=== PATIENT | female | born 2000 | race Caucasian/White ===

== ENCOUNTER 2022-12-13 20:23 | Emergency (ER) | payer OTHER, SELFPAY ==
[2022-12-13 20:43] VITALS: BP 129/73; PULSE 93; RESP 18; TEMP 37.1; O2SAT 100; BMI 25.3
--- NOTE | 2022-12-13 20:50 | ED_ITS ---
HPI - Animal Bite General Chief Complaint: Animal Bite Stated Complaint: Attacked by cat left leg Time Seen by Provider: 12/13/22 22:03 Source: patient Mode of arrival: ambulatory Limitations: no limitations History of Present Illness HPI narrative: Patient got scratched and bitten by her friend's cat prior to arrival. Patient got scared of Cat and for no reason Cat came and started scratching and biting her legs. Cat otherwise healthy not sure whether get been immunized completely or not. Patient up-to-date with tetanus Related Data Previous Rx's Medication Instructions Recorded clindamycin HCl 300 mg capsule 300 mg PO TID #30 caps 12/13/22 doxycycline hyclate 100 mg tablet 100 mg PO BID #20 tabs 12/13/22 ibuprofen 600 mg tablet 600 mg PO Q6H PRN fever or pain 12/13/22 #30 tabs Allergies Allergy/AdvReac Type Severity Reaction Status Date / Time Penicillins [PCN] Allergy Mild HIVES Unverified 12/27/19 17:25 Review of Systems Review of Systems: Yes all other systems are reviewed and are negative [facility] Social History Social History Alcohol intake: never Smoked in Last 30 Days: No Use of substances other than those prescribed or required for medical reasons: No Advance Directives: No Advance Directives Information Provided: Yes Physical Exam ED Vital Signs: Vital Signs - 24 hr 12/13/22 20:43 12/13/22 22:44 Temperature 98.7 F 98.9 F Pulse Rate 93 68 Respiratory Rate 18 15 Blood Pressure 129/73 113/75 Pulse Oximetry 100 100 Oxygen Delivery Method Room Air Room Air BMI result Body Mass Index 25.3 Appearance: Alert. Oriented X3. No acute distress. CVS: Normal heart rate and rhythm. Pulses normal. Respiratory: No respiratory distress. Skin: Skin warm and dry. Multiple scratch lozano L lower extremity Extremities: Bite clarissa and scratch lozano left lower extremity slight swelling Neuro: Oriented X 3. Course Course Course Narrative: This is a rapid medical exam: Additional HPI, ROS, PE not included below will be deferred to primary provider. Patient is a 22-year-old female presenting to the emergency department with complaint of left lower leg pain after being bitten and scratched by a friend's cat this morning. Patient reports that she was putting a baby in the car and the cat came up behind her and bit and scratched her on the leg. Friend told her that the cat has had its 1st month of vaccinations but was unable to provide more specific information than that. The bite occurred in [place]. Patient states as the day has progressed, the pain and swelling has worsened to left leg. Multiple scabs and abrasions noted to left calf area. Patient reports tetanus was recently updated. Medications Administered Discontinued Medications Generic Name Dose Route Start Last Admin Trade Name Freq PRN Reason Stop Dose Admin Clindamycin HCl 300 mg 12/13/22 22:38 12/13/22 23:08 Clindamycin Hcl 300 Mg Capsule PO 12/13/22 22:39 300 mg ONCE ONE Administration Doxycycline Monohydrate 100 mg 12/13/22 22:38 12/13/22 23:07 Doxycycline Monohydrate 100 Mg Capsule PO 12/13/22 22:39 100 mg ONCE ONE Administration Ibuprofen 600 mg 12/13/22 22:36 12/13/22 23:07 Ibuprofen 600 Mg Tablet PO 12/13/22 22:37 600 mg ONCE ONE Administration Medical Decision Making Medical Decision Making [facility] Narrative: Patient with cat bite wound was clean patient allergic to penicillin will give doxycycline and clindamycin for to avoid infection patient will be keeping an eye on a CT to report to the hospital in case get dyes abuse differently next 10 days Discharge Plan Discharge Clinical Impression: Cat bite Patient Disposition: Home, Self-Care Instructions: Animal Bite (ED) Additional Instructions: Local care of wounds as advised Antibiotic as prescribed Report to the ER if worsening of the redness or pain Report to the ER if Cat dies within next 10 days for rabies injection Prescriptions: New clindamycin HCl 300 mg capsule 300 mg PO TID Qty: 30 0RF ibuprofen 600 mg tablet 600 mg PO Q6H PRN (Reason: fever or pain) Qty: 30 0RF doxycycline hyclate 100 mg tablet 100 mg PO BID Qty: 20 0RF Interventions: ED Discharge Assessment Last Done: 12/13/22 23:34 Discharge Date/Time: 12/13/22 23:36
[2022-12-13 22:44] VITALS: BP 113/75; PULSE 68; RESP 15; TEMP 37.2; O2SAT 100
[2022-12-13] MEDS: Doxycycline Monohydrate 100 MG CAPSULE PO (23:07)
[2022-12-13] MEDS: Ibuprofen 600 MG TABLET PO (23:07)
[2022-12-13] MEDS: Clindamycin HCL 300 MG CAPSULE PO (23:08)
== END 2022-12-13 23:36 | disposition home or self-care (01) ==
PROVIDERS: Emergency Provider Internal Medicine
DX: S81.852A Open bite, left lower leg, initial encounter (principal); W55.01XA Bitten by cat, initial encounter; Y93.9 Activity, unspecified; Y92.9 Unspecified place or not applicable; Y99.9 Unspecified external cause status
CPT/HCPCS: 99283; 99284

== ENCOUNTER 2023-08-31 01:34 | Emergency (ER) | payer OTHER, SELFPAY ==
[2023-08-31 01:58] VITALS: BP 150/97; PULSE 65; RESP 18; TEMP 37.1; O2SAT 98; BMI 23.9
[2023-08-31 02:23] LABS: MANUAL DIFF FLAG NO
[2023-08-31 02:25] LABS: Basophils Absolute Auto 0.1 X10*3/uL (0.0-0.2); Basophils Percent Auto 0.6 % (0-2); Eosinophils Percent Auto 0.4 % (0-4); Hematocrit 38.4 % (37.0-47.0); Hemoglobin 12.9 g/dl (12.0-16.0); Imm Gran Abs Auto 0.02 X10*3/uL (0.00-0.03); Imm Gran Pct Auto 0.2 % (0.0-0.4); Lymphocytes Absolute Auto 3.6 X10*3/uL (1.2-4.9); Lymphocytes Percent Auto 33.8 % (20-40); Mean Corpuscular HGB Conc 33.6 g/dl (31.0-35.0); Mean Corpuscular Hemoglobin 27.6 pg (27.0-33.0); Mean Corpuscular Volume 82.1 fL (80.0-98.0); Mean Platelet Volume 9.3 fL (9.4-12.3); Monocytes Absolute Auto 0.7 X10*3/uL (0.1-1.2); Monocytes Percent Auto 6.6 % (2-11); Neutrophils Absolute Auto 6.1 x10*3/uL (2.0-8.3); Neutrophils Percent Auto 58.4 % (45-73); Platelet Count 383 X10*3/uL (160-400); Red Blood Count 4.68 X10*6/uL (4.20-5.50); Red Cell Distribution Width 13.4 % (11.0-16.0); White Blood Count 10.5 X10*3/uL (4.8-10.8)
[2023-08-31 02:34] LABS: IDNOW Serial# 08D9AD1C; Strep A Nucleic Acid Negative (Negative)
[2023-08-31 02:48] LABS: Alanine Aminotransferase 42 U/L (0-31); Albumin Level 4.8 g/dL (3.5-5.0); Alkaline Phosphatase 61 U/L (39-117); Anion Gap 19 (12-20); Aspartate Amino Transferase 62 U/L (5-31); Bilirubin Total 0.5 mg/dL (0.0-1.0); Blood Urea Nitrogen 14 mg/dL (9-16); Calcium 9.8 mg/dL (8.4-10.2); Carbon Dioxide 20 mmol/L (22-29); Chloride 108 mmol/L (96-108); Creatinine Clr Calc Pharmacy 65.8; Estimated Glomerular Filt Rate > 60; Glucose Random 86 mg/dL (60-115); Potassium 4.2 mmol/L (3.3-5.1); Sodium 143 mmol/L (135-145); Total Protein 7.7 g/dL (6.5-8.0)
[2023-08-31 04:28] VITALS: BP 140/81; PULSE 54; RESP 16; TEMP 37; O2SAT 99
--- NOTE | 2023-08-31 06:30 | ED_ITS ---
HPI - General Adult General Chief complaint: Dental/Oral Stated complaint: Mouth pain, allergic reaction? Time Seen by Provider: 08/31/23 06:30 Source: patient and family (mother) Mode of arrival: ambulatory Limitations: no limitations History of Present Illness ED Provider: Tavares Contreras NP HPI narrative: Patient is a 22-year-old female presenting to the emergency department with complaint of oral pain since yesterday. Patient reports that she developed a burning sensation to the roof of her mouth, describes feeling a blister. States she drank some water and symptoms did not improve. Then when eating a hamburger, states pain significantly increased. States the hamburger was not overly hot. Denies any difficulty swallowing. Does complain of sore throat. Denies fevers, nasal congestion, cough. Denies any difficulty breathing or shortness of breath. Denies recent antibiotic use. Denies any rashes or lesions anywhere else on her body. complaint: oral pain Onset (ago): hour(s) Location: mouth Radiation: non-radiation Severity: moderate Quality: burning Pain Consistency: constant Relieving factors: none Exacerbating factors: eating Associated symptoms: denies other symptoms Treatments prior to arrival: none Related Data Previous Rx's ?Medication ?Instructions ?Recorded clindamycin HCl 300 mg capsule 300 mg PO TID #30 caps 12/13/22 doxycycline hyclate 100 mg tablet 100 mg PO BID #20 tabs 12/13/22 ibuprofen 600 mg tablet 600 mg PO Q6H PRN fever or pain 12/13/22 #30 tabs lidocaine HCl 2 % mucosal solution 5 ml mucous membrane TID PRN mouth 08/31/23 (Lidocaine Viscous) pain #100 mL Allergies Allergy/AdvReac Type Severity Reaction Status Date / Time Penicillins [PCN] Allergy Mild HIVES Unverified 08/31/23 02:02 Review of Systems 2 Review of Systems: As per HPI. Yes all other systems are reviewed and are negative Constitutional: Constitutional: Reports as per HPI [facility] Social History Social History Alcohol intake: never Advance Directives: No Advance Directives Information Provided: Yes Do you have a plan to hurt others: No Plan Physical Exam ED Vital Signs: Vital Signs - 24 hr 08/31/23 01:58 08/31/23 04:28 08/31/23 06:44 Temperature 98.8 F 98.6 F 98.2 F Pulse Rate 65 54 98 Respiratory Rate 18 16 16 Blood Pressure 150/97 H 140/81 H 143/80 H Pulse Oximetry 98 99 98 Oxygen Delivery Method Room Air Room Air Room Air BMI result Body Mass Index 23.9 Vital signs have been reviewed and appear to be correct. Blood pressure elevated. Heart rate normal. Respiratory rate normal. Temperature normal. Oxygen saturation normal. Const General: cooperative, healthy appearing and no acute distress Orientation/consciousness: oriented to person, oriented to place, oriented to time and patient oriented x3 Limitations: no limitations HENMT Head: Yes normocephalic and Yes atraumatic Ears: external ears normal General nose exam: Normal external nose present Face and sinus: Yes face symmetric Mouth: Normal oral and palatal mucosa present, lip normal, tongue normal, Normal salivary glands and ducts present, oropharynx normal, moist mucous membranes, no audible dysphonia, no drooling, No mouth trauma, no muffled voice, Abnormal oral and palatal mucosa present erythematous (palate/posterior oropharynx); not edematous, no palatal petechiae, no ulcerations, no white patches, no vesicles, lesions, nodules, papules, pustules, ulceration, cyst and leukoplakia, no trismus and No restricted motion Throat: Yes tonsils normal, Yes uvula midline, Yes posterior oropharynx abnormal (erythema without edema or exudate) and No uvular edema Eyes Pupils: Equal, round and reactive pupils present Neck Neck: Yes normal visual inspection and Yes supple Resp Effort & Inspection: normal respiratory effort and able to speak in complete sentences Auscultation: clear to auscultation bilaterally Cardio Rate: regular rate Rhythm: regular rhythm Heart sounds: S1 normal heart sound present and S2 normal heart sound present GI Palpation (GI): Soft to palpation and nontender Auscultation: normoactive bowel sounds General: Yes no CVA tenderness Back/Spine/Pelvis Back: no CVA tenderness Skin General skin exam: elasticity normal and turgor normal Neuro General: oriented to person, oriented to place, oriented to time, patient oriented x3, moves all extremities, no focal motor deficits and CN's II-XI intact bilaterally Cranial nerves: Yes Equal, round and reactive pupils present Cognition (Neuro): normal cognition Extrem General: Yes full ROM, Yes no pedal edema and Yes no calf tenderness Psych Mental Status: mental status grossly normal Affect: normal affect Thought process: Normal thought process present Medical Decision Making Medical Decision Making [facility] Narrative: Patient is a 22-year-old female presenting to the emergency department with complaint of oral pain since yesterday. On exam patient is awake, A+Ox3, VS WNL, afebrile, normal neurological exam without focal deficits, physical exam findings as above. Given reported symptoms and physical exam findings, initial differential includes strep pharyngitis, viral illness. Unlikely allergic reaction. Do not suspect HFMD. Labs unremarkable. Strep swab negative. No concerning findings on physical exam. Possibly burning mouth syndrome of unknown etiology. Advised patient to alternate Tylenol and ibuprofen, gargle with warm salt water, will send prescription for viscous lidocaine to swish and spit. Instructed patient to follow-up with primary care provider. Return precautions discussed at bedside. Patient verbalized understanding of and agreement with plan. Differential Diagnosis Differential Diagnoses: The differential diagnosis associated with the presentation includes As per [facility]. Lab Data [facility] Lab Attestation statement: I reviewed the patient's lab results. As per [facility]. 08/31/23 02:19 08/31/23 02:19 Labs: Lab Results 08/31/23 Range/Units 02:19 WBC 10.5 (4.8-10.8) X10*3/uL RBC 4.68 (4.20-5.50) X10*6/uL Hgb 12.9 (12.0-16.0) g/dl Hct 38.4 (37.0-47.0) % MCV 82.1 (80.0-98.0) fL MCH 27.6 (27.0-33.0) pg MCHC 33.6 (31.0-35.0) g/dl RDW 13.4 (11.0-16.0) % Plt Count 383 (160-400) X10*3/uL MPV 9.3 L (9.4-12.3) fL Immature Gran % (Auto) 0.2 (0.0-0.4) % Neut % (Auto) 58.4 (45-73) % Lymph % (Auto) 33.8 (20-40) % [place] % (Auto) 6.6 (2-11) % Eos % (Auto) 0.4 (0-4) % Baso % (Auto) 0.6 (0-2) % Lymph # (Auto) 3.6 (1.2-4.9) X10*3/uL [place] # (Auto) 0.7 (0.1-1.2) X10*3/uL Eos # (Auto) 0.0 (0.0-0.4) X10*3/uL Baso # (Auto) 0.1 (0.0-0.2) X10*3/uL Abs Immat Gran (auto) 0.02 (0.00-0.03) X10*3/uL Absolute Neuts (auto) 6.1 (2.0-8.3) x10*3/uL Absolute Nucleated RBC 0.000 (0.0-0.012) X10*3/uL Nucleated RBC % (auto) 0.0 (0.0-0.2) /100WBC Sodium 143 (135-145) mmol/L Potassium 4.2 (3.3-5.1) mmol/L Chloride 108 (96-108) mmol/L Carbon Dioxide 20 L (22-29) mmol/L Anion Gap 19 (12-20) BUN 14 (9-16) mg/dL Creatinine 1.10 (0.5-1.4) mg/dL Estim Creat Clear Calc 65.8 Estimated GFR > 60 Random Glucose 86 (60-115) mg/dL Calcium 9.8 (8.4-10.2) mg/dL Total Bilirubin 0.5 (0.0-1.0) mg/dL AST 62 H (5-31) U/L ALT 42 H (0-31) U/L Alkaline Phosphatase 61 (39-117) U/L Total Protein 7.7 (6.5-8.0) g/dL Albumin 4.8 (3.5-5.0) g/dL S. pyogenes GrpA SHABBIR Negative (Negative) Independent Historian Clinical information obtained from an independent historian. History obtained from or confirmed by: Parent External Record Review External record reviewed: Inpatient record, Office record and Outpatient record Prescription Management I considered prescription management with: Pain Medication Discharge Plan Discharge Clinical Impression: Oral pain Patient Disposition: Home, Self-Care Additional Instructions: You were evaluated in the emergency department today for oral pain. The cause of your pain was not determined, but could be due to a viral illness. You are being prescribed lidocaine which you can swish in your mouth and spit out. We also recommend that you take 600mg ibuprofen or 650mg Tylenol every 6 hours as needed for pain. You can also gargle with warm salt water several times daily. We recommend that you follow-up with your primary care provider this week. Return to the emergency department if you develop worsening pain, increased swelling, fever, swelling which is worse on 1 side, swelling to your neck or any other concerning symptoms. Prescriptions: New lidocaine HCl [Lidocaine Viscous] 2 % solution 5 ml mucous membrane TID PRN (Reason: mouth pain) Qty: 100 0RF No Action clindamycin HCl 300 mg capsule 300 mg PO TID Qty: 30 0RF ibuprofen 600 mg tablet 600 mg PO Q6H PRN (Reason: fever or pain) Qty: 30 0RF doxycycline hyclate 100 mg tablet 100 mg PO BID Qty: 20 0RF Print Language: Burkinan
[2023-08-31 06:44] VITALS: BP 143/80; PULSE 98; RESP 16; TEMP 36.8; O2SAT 98
== END 2023-08-31 07:17 | disposition home or self-care (01) ==
PROVIDERS: Emergency Provider Emergency Medicine; PCP Internal Medicine
DX: K13.79 Other lesions of oral mucosa (principal); J02.9 Acute pharyngitis, unspecified
CPT/HCPCS: 36415; 80053; 85025; 87651; 99282; 99283